=== PATIENT | male | born 1990 | race Two or more races ===

== ENCOUNTER 2017-09-26 05:47 | Emergency (ER) | payer SELFPAY ==
[~2017-09-26] VITALS: Ht 177.8 cm; Wt 91.0 kg
[2017-09-26] MEDS ORDERED: LIDOCAINE HCL/EPINEPHRINE 1%-EPI 1:100,000 30 ML VIAL INFIL ONE (08:15)
[2017-09-26] MEDS ORDERED: BACITRACIN ZINC OINT UDPKT TOP ONE (08:15)
[2017-09-26 14:30] VITALS: BP 128/70
== END 2017-09-26 14:46 | disposition home or self-care (01) ==
LOC: ER 05:47
DX: S61.412A Laceration without foreign body of left hand, initial encounter (principal); F10.129 Alcohol abuse with intoxication, unspecified; F17.200 Nicotine dependence, unspecified, uncomplicated; W04.XXXA Fall while being carried or supported by other persons, initial encounter; Y93.89 Activity, other specified; Y92.89 Other specified places as the place of occurrence of the external cause; Y99.8 Other external cause status; Y90.9 Presence of alcohol in blood, level not specified
CPT/HCPCS: 12002; 73130; 99284